=== PATIENT | female | born 1955 | race Caucasian/White ===

== ENCOUNTER → 2017-06-26 | Outpatient (CLI) | payer OTHER ==
[~2017-06-26] MED LIST: ASPIR 8181 MG PO; CITRACAL + D M1 EACH PO; LIPITOR10 MG PO
--- NOTE | ~2017-06-26 | EKG ---
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 : 1955 Requested By: Charbel Bowers Order Number: [id number] MD: Saturnino Altamirano Measurements Intervals [place] Rate: 68 P: 58 [place]: 136 QRS: 24 QRSD: 88 T: 60 QT: 404 QTc: 430 Interpretive Statements Sinus rhythm Early R wave progression No previous ECG available for comparison Electronically Signed On 06-26-2017 9:59:29 [employer]MIN[employer]RATOR by Saturnino Altamirano [email or web address] <ELECTRONICALLY SIGNED> By: Saturnino Altamirano MD, [facility] 06/26/17 0959 [id number] 08 Saturnino Altamirano MD, FACC /EPI
== END ==
LOC: LITH 07:56
DX: N20.0 Calculus of kidney (principal); Z98.890 Other specified postprocedural states